=== PATIENT | male | born 1970 | race Caucasian/White ===

== ENCOUNTER 2022-09-13 00:44 | Inpatient (IN) | payer BC, OTHER ==
[2022-09-13] VITALS (7 sets, daily range): BP systolic 94–156; BP diastolic 55–91
[~2022-09-13] VITALS: Ht 172.7 cm; Wt 109.8 kg
[~2022-09-13 00:44] MED LIST: ACET500C; GABA300T; IBUP800T; LYRI150C; NABU750T; NEXI1CAP3; PROT1TAB2; TRAM50TA2; ULTRTA; hyzaar
[2022-09-13] MEDS ORDERED: NS 1,000 ML IV ONE (01:05)
[2022-09-13] MEDS ORDERED: NS 2,200 ML in IV 1 EA IV ONE (01:20)
[2022-09-13] MEDS ORDERED: TIZA10TA PO (01:38)
[2022-09-13] MEDS ORDERED: ATOR1TAB21 PO (01:38)
[2022-09-13] MEDS ORDERED: METF-838 PO (01:38)
[2022-09-13] MEDS ORDERED: GABA600T4 PO (01:38)
[2022-09-13] MEDS ORDERED: METO1TAB7 PO (01:38)
[2022-09-13] MEDS ORDERED: DICY20TA20 PO (01:38)
[2022-09-13] MEDS ORDERED: LISI20TA33 PO (01:38)
[2022-09-13] MEDS ORDERED: MELO15TA28 PO (01:38)
[2022-09-13] MEDS ORDERED: ALLO100T PO (01:38)
[2022-09-13] MEDS ORDERED: PANT20TA6 PO (01:38)
[2022-09-13 01:46] LABS: ALBUMIN 3.6 G/DL (3.2-5.2); POTASSIUM SERUM 4.6 MMOL/L (3.5-5.1)
[2022-09-13 01:52] LABS: CALCIUM LEVEL 8.1 MG/DL (8.5-10.1)
[2022-09-13 01:54] LABS: BILIRUBIN,DIRECT 0.3 MG/DL (<0.4); BILIRUBIN,TOTAL 0.6 MG/DL (0.3-1.2); TOTAL PROTEIN 6.9 G/DL (5.7-8.2)
[2022-09-13 02:03] LABS: BASO % 0.5 % (0.0-1.0); HEMOGLOBIN 13.8 g/dl (13.5-17.5); LYMPH # 1.8 10^3/uL (1.5-5.0); LYMPH % 41.3 % (24.0-44.0); MEAN CORPUSCULAR HEMOGLOBIN 30.3 pg (27.0-33.0); MEAN CORPUSCULAR HGB CONC 33.7 g/dl (32.0-36.5); MEAN CORPUSCULAR VOLUME 89.9 fl (80.0-96.0); MONO # 0.4 10^3/uL (0.0-0.8); MONO % 9.7 % (2.0-8.0); NEUTROPHILS # 2.1 10^3/uL (1.5-8.5); NEUTROPHILS % 47.3 % (36.0-66.0); PLATELET COUNT, AUTOMATED 101 10^3/uL (150-450); RED BLOOD COUNT 4.56 10^6/uL (4.30-6.10); WHITE BLOOD COUNT 4.3 10^3/uL (4.0-10.0)
[2022-09-13 02:33] LABS: CREATININE FOR GFR 10.7 MG/DL (0.70-1.30); GLOMERULAR FILTRATION RATE 5.4 (>56)
[2022-09-13] MEDS ORDERED: NS 1,000 ML IV SCH (03:55)
[2022-09-13] MEDS ORDERED: GLUCOSE 4GM CHEW TABLET PO PRN (04:20)
[2022-09-13] MEDS ORDERED: GLUCAGON INJ 1MG VIAL SC PRN (04:20)
[2022-09-13] MEDS ORDERED: DEXTROSE 50% 50 ML SYRINGE IV PRN (04:20)
[2022-09-13] MEDS ORDERED: HOME MED LIST COMPLETE! XX SCH (05:05)
[2022-09-13] MEDS: HEPARIN SOD (PORCINE) 5000UNITS/ML 1ML VIAL/SYRINGE SC SCH ×2 (06:40→14:05)
[2022-09-13] MEDS: LR 1,000 ML IV SCH ×4 (06:40→18:05)
[2022-09-13] MEDS: INSULIN LISPRO (NovoLOG) PER UNIT SC SCH ×4 (07:30→21:00)
[2022-09-13] MEDS: FOLIC ACID 1MG TAB PO SCH (09:00)
[2022-09-13] MEDS: THIAMINE 100 MG TAB PO SCH (09:00)
[2022-09-13] MEDS: MULTIVITAMINS/MINERALS THERAP 1 TAB PO SCH (09:00)
[2022-09-13 09:11] LABS: CALCIUM LEVEL 6.8 MG/DL (8.5-10.1)
[2022-09-13 09:36] LABS: CREATININE FOR GFR 10.07 MG/DL (0.70-1.30); GLOMERULAR FILTRATION RATE 5.8 (>56); POTASSIUM SERUM 4.3 MMOL/L (3.5-5.1)
[2022-09-13] MEDS ORDERED: LORazepam 2 MG TAB PO PRN (10:35)
[2022-09-13] MEDS ORDERED: ACETAMINOPHEN 325 MG TAB PO PRN (10:50)
[2022-09-13] MEDS ORDERED: cefTRIAXone SOD 1 GM in D5W MINI-BAG PLUS 50 ML IV SCH (11:00)
[2022-09-13] MEDS: SODIUM BICARBONATE 75 MEQ in NS 0.45% 1,000 ML IV SCH ×2 (11:10→15:34)
[2022-09-13 13:47] LABS: HEPATITIS B SURFACE ANTIGEN NEGATIVE (NEGATIVE)
[2022-09-13] MEDS ORDERED: ACETAMINOPHEN 325 MG SUPP PR ONE (14:00)
[2022-09-13 14:08] LABS: HEPATITIS B CORE ANTIBODY IGM NEGATIVE (NEGATIVE)
[2022-09-13] MEDS: ACETAMINOPHEN TAB 650MG DOSE (2X325MG) PO PRN (18:06)
[2022-09-13 20:48] LABS: VENOUS BASE EXCESS -10.8 (-2.0-2.0); VENOUS HCO3 14.5 MEQ/L (23.0-27.0); VENOUS O2 SATURATION 76.2 % (60.0-80.0); VENOUS PARTIAL PRESSURE CO2 31.1 mmHg (38.0-50.0); VENOUS PARTIAL PRESSURE O2 44.3 mmHg (30.0-50.0); VENOUS PH 7.287 UNITS (7.330-7.430); VENOUS STANDARD HCO3 15.6 MEQ/L; VENOUS TOTAL CO2 15.5 MEQ/L (24.0-28.0)
[2022-09-13 21:13] LABS: CALCIUM LEVEL 6.6 MG/DL (8.5-10.1)
[2022-09-13 21:15] LABS: INR 1.13; PROTHROMBIN TIME 14.7 SECONDS (12.5-14.5)
[2022-09-13 21:16] LABS: PARTIAL THROMBOPLASTIN TIME 33.9 SECONDS (24.8-34.2)
[2022-09-13 21:16] LABS: BILIRUBIN,TOTAL 0.4 MG/DL (0.3-1.2)
[2022-09-13 21:21] LABS: ALBUMIN 2.8 G/DL (3.2-5.2); CREATININE FOR GFR 9.12 MG/DL (0.70-1.30); GLOMERULAR FILTRATION RATE 6.5 (>56); POTASSIUM SERUM 4.1 MMOL/L (3.5-5.1); TOTAL PROTEIN 5.6 G/DL (5.7-8.2)
[2022-09-14] VITALS (9 sets, daily range): BP systolic 124–202; BP diastolic 62–104
[2022-09-14] MEDS: ACETAMINOPHEN TAB 650MG DOSE (2X325MG) PO PRN ×4 (00:29→20:46)
[2022-09-14] MEDS: SODIUM BICARBONATE 75 MEQ in NS 0.45% 1,000 ML IV SCH ×2 (01:29→07:42)
[2022-09-14] MEDS ORDERED: PIPERACILLIN/TAZOBACTAM SOD 3.375 GM in D5W MINI-BAG PLUS 50 ML IV SCH (03:00)
[2022-09-14] MEDS ORDERED: ACETAMINOPHEN 325 MG TAB PO ONE (04:00)
[2022-09-14] MEDS: PIPERACILLIN/TAZOBACTAM SOD 2.25 GM in D5W MINI-BAG PLUS 50 ML IV SCH ×4 (04:18→22:15)
[2022-09-14] MEDS: INSULIN LISPRO (NovoLOG) PER UNIT SC SCH ×4 (07:30→21:00)
[2022-09-14 07:32] LABS: HEMATOCRIT 37.2 % (42.0-52.0); HEMOGLOBIN 13.1 g/dl (13.5-17.5); MEAN CORPUSCULAR HGB CONC 35.2 g/dl (32.0-36.5); MEAN CORPUSCULAR VOLUME 87.9 fl (80.0-96.0); RED BLOOD COUNT 4.23 10^6/uL (4.30-6.10); VENOUS BASE EXCESS -10.4 (-2.0-2.0); VENOUS HCO3 14.8 MEQ/L (23.0-27.0); VENOUS O2 SATURATION 88.2 % (60.0-80.0); VENOUS PARTIAL PRESSURE CO2 31.2 mmHg (38.0-50.0); VENOUS PH 7.293 UNITS (7.330-7.430); VENOUS STANDARD HCO3 16.1 MEQ/L; VENOUS TOTAL CO2 15.7 MEQ/L (24.0-28.0); WHITE BLOOD COUNT 4.3 10^3/uL (4.0-10.0)
[2022-09-14 08:08] LABS: CHLORIDE LEVEL 101 MMOL/L (98-107); POTASSIUM SERUM 3.5 MMOL/L (3.5-5.1); SODIUM LEVEL 134 MMOL/L (136-145)
[2022-09-14 08:09] LABS: CARBON DIOXIDE LEVEL 16 MMOL/L (20-31)
[2022-09-14 08:14] LABS: BLOOD UREA NITROGEN 100 MG/DL (9-23); GLUCOSE, FASTING 111 MG/DL (60-100); LIPASE 101 U/L (12-53); MAGNESIUM LEVEL 1.9 MG/DL (1.8-2.4)
[2022-09-14 08:15] LABS: ALKALINE PHOSPHATASE 56 U/L (46-116)
[2022-09-14] MEDS: THIAMINE 100 MG TAB PO SCH (08:15)
[2022-09-14] MEDS: FOLIC ACID 1MG TAB PO SCH (08:15)
[2022-09-14] MEDS: MULTIVITAMINS/MINERALS THERAP 1 TAB PO SCH (08:15)
[2022-09-14 08:16] LABS: BILIRUBIN,TOTAL 0.6 MG/DL (0.3-1.2); IRON (FE) 45 UG/DL (65-175); PERCENT SATURATION 20.2 % (19.7-50.0); PHOSPHORUS LEVEL 6.9 MG/DL (2.5-4.9); TOTAL IRON BINDING CAPACITY 223 UG/DL (250-425)
[2022-09-14 08:17] LABS: ALT/SGPT 407 U/L (7.0-40); AST/SGOT 456 U/L (<34)
[2022-09-14 08:18] LABS: TOTAL 25(OH) VITAMIN D 20.8 NG/ML (20.0-100.0)
[2022-09-14 08:39] LABS: PLATELET COUNT, AUTOMATED 83 10^3/uL (150-450)
[2022-09-14 08:48] LABS: ATYPICAL LYMPH 2 % (0-5); LYMPHOCYTES 27 % (16-44); MONOCYTES 1 % (0-5); MYELOCYTES 1 % (0-0); NEUTROPHILS 57 % (28-66); PLATELET ESTIMATE DECREASED (NORMAL)
[2022-09-14 08:49] LABS: ANISOCYTOSIS 1+; MICROCYTOSIS 1+
[2022-09-14] MEDS ORDERED: FLUBLOK(EGG FREE)(QUAD)INFLUENZA VACC 0.5ML SYRINGE 18YRS & OLDER IM.IMMUN ONE (09:00)
[2022-09-14 09:39] LABS: CREATININE FOR GFR 8.64 MG/DL (0.70-1.30); GLOMERULAR FILTRATION RATE 6.9 (>56); TOTAL PROTEIN 6.2 G/DL (5.7-8.2)
[2022-09-14] MEDS: SODIUM BICARBONATE 75 MEQ, POTASSIUM CHLORIDE INJ 10 MEQ in NS 0.45% 1,000 ML IV SCH ×2 (13:54→20:47)
[2022-09-14 15:19] LABS: FOLATE > 24.00 NG/ML (>5.4)
[2022-09-14 15:23] LABS: FERRITIN > 16500.0 NG/ML (10.5-307.3)
[2022-09-14 15:26] LABS: BILIRUBIN,DIRECT 0.3 MG/DL (<0.4); VITAMIN B12 LEVEL > 2000 PG/ML (211-911)
[2022-09-14 16:16] LABS: OSMOLALITY SERUM 302 MOSM/KG (275-295)
[2022-09-14 16:18] LABS: HEMATOCRIT 33.1 % (42.0-52.0); HEMOGLOBIN 11.5 g/dl (13.5-17.5); MEAN CORPUSCULAR HEMOGLOBIN 30.4 pg (27.0-33.0); MEAN CORPUSCULAR HGB CONC 34.7 g/dl (32.0-36.5); MEAN CORPUSCULAR VOLUME 87.6 fl (80.0-96.0); RED BLOOD COUNT 3.78 10^6/uL (4.30-6.10); WHITE BLOOD COUNT 4.2 10^3/uL (4.0-10.0)
[2022-09-14 16:20] LABS: PLATELET COUNT, AUTOMATED 91 10^3/uL (150-450)
[2022-09-14 16:40] LABS: ACETONE/KETONE 1.49 MMOL/L (0.02-0.27)
[2022-09-14 17:08] LABS: ATYPICAL LYMPH 2 % (0-5); LYMPHOCYTES 18 % (16-44); METAMYELOCYTES 1 % (0-0); MONOCYTES 6 % (0-5); NEUTROPHILS 42 % (28-66)
[2022-09-14 17:09] LABS: PLATELET ESTIMATE DECREASED (NORMAL)
[2022-09-14 18:59] LABS: CHOLESTEROL LEVEL 113 MG/DL (<200); CHOLESTEROL RISK RATIO 21.73 (<5); HDL CHOLESTEROL 5.2 MG/DL (>40); NON-HDL-C 108 MG/DL; TRIGLYCERIDES LEVEL 597 MG/DL (<150)
[2022-09-14 19:59] LABS: HIV 1&2 SCREEN CENTAUR NEGATIVE (NEGATIVE)
[2022-09-14 20:06] LABS: ALBUMIN 2.7 G/DL (3.2-5.2); ALKALINE PHOSPHATASE 52 U/L (46-116); ALT/SGPT 329 U/L (7.0-40); AST/SGOT 272 U/L (<34); BILIRUBIN,TOTAL 0.6 MG/DL (0.3-1.2); BLOOD UREA NITROGEN 99 MG/DL (9-23); CALCIUM LEVEL 7.1 MG/DL (8.5-10.1); CARBON DIOXIDE LEVEL 17 MMOL/L (20-31); CHLORIDE LEVEL 101 MMOL/L (98-107); CREATININE FOR GFR 8.18 MG/DL (0.70-1.30); GLOMERULAR FILTRATION RATE 7.3 (>56); GLUCOSE, FASTING 109 MG/DL (60-100); POTASSIUM SERUM 3.3 MMOL/L (3.5-5.1); SODIUM LEVEL 135 MMOL/L (136-145); TOTAL PROTEIN 5.6 G/DL (5.7-8.2)
[2022-09-14] MEDS: HEPARIN SOD (PORCINE) 5000UNITS/ML 1ML VIAL/SYRINGE SC SCH (21:28)
[2022-09-15] VITALS (7 sets, daily range): BP systolic 131–187; BP diastolic 68–96
[2022-09-15] MEDS: ACETAMINOPHEN TAB 650MG DOSE (2X325MG) PO PRN ×2 (03:38→10:28)
[2022-09-15] MEDS: SODIUM BICARBONATE 75 MEQ, POTASSIUM CHLORIDE INJ 10 MEQ in NS 0.45% 1,000 ML IV SCH (05:29)
[2022-09-15] MEDS: PIPERACILLIN/TAZOBACTAM SOD 2.25 GM in D5W MINI-BAG PLUS 50 ML IV SCH ×4 (05:29→23:33)
[2022-09-15] MEDS: HEPARIN SOD (PORCINE) 5000UNITS/ML 1ML VIAL/SYRINGE SC SCH (05:29)
[2022-09-15 05:36] LABS: BASO % 0.2 % (0.0-1.0); HEMATOCRIT 31.4 % (42.0-52.0); HEMOGLOBIN 10.9 g/dl (13.5-17.5); LYMPH # 0.8 10^3/uL (1.5-5.0); LYMPH % 16.9 % (24.0-44.0); MEAN CORPUSCULAR HEMOGLOBIN 30.2 pg (27.0-33.0); MEAN CORPUSCULAR HGB CONC 34.7 g/dl (32.0-36.5); MONO # 0.4 10^3/uL (0.0-0.8); MONO % 9.3 % (2.0-8.0); NEUTROPHILS # 3.2 10^3/uL (1.5-8.5); NEUTROPHILS % 71.6 % (36.0-66.0); RED BLOOD COUNT 3.61 10^6/uL (4.30-6.10); WHITE BLOOD COUNT 4.4 10^3/uL (4.0-10.0)
[2022-09-15 05:38] LABS: PLATELET COUNT, AUTOMATED 99 10^3/uL (150-450)
[2022-09-15 06:03] LABS: ALBUMIN 2.5 G/DL (3.2-5.2); BILIRUBIN,TOTAL 0.6 MG/DL (0.3-1.2); CALCIUM LEVEL 7.3 MG/DL (8.5-10.1); CREATININE FOR GFR 7.51 MG/DL (0.70-1.30); GLOMERULAR FILTRATION RATE 8.1 (>56); POTASSIUM SERUM 3.2 MMOL/L (3.5-5.1); TOTAL PROTEIN 5.5 G/DL (5.7-8.2)
[2022-09-15 07:30] LABS: TOTAL PROTEIN 5.8 GM/DL (6.4-8.2)
[2022-09-15] MEDS: MULTIVITAMINS/MINERALS THERAP 1 TAB PO SCH (08:35)
[2022-09-15] MEDS: INSULIN LISPRO (NovoLOG) PER UNIT SC SCH ×4 (08:35→20:23)
[2022-09-15] MEDS: THIAMINE 100 MG TAB PO SCH (08:35)
[2022-09-15] MEDS: POTASSIUM CHLORIDE 10MEQ SR TABLET PO SCH ×2 (08:35→20:22)
[2022-09-15] MEDS: FOLIC ACID 1MG TAB PO SCH (08:35)
[2022-09-15 10:18] LABS: FERRITIN 13852.2 NG/ML (10.5-307.3)
[2022-09-15] MEDS: methylPREDNISolone 1,000 MG, VIAL MATE ADAPTER 1 EACH in NS 250 ML IV SCH (10:20)
[2022-09-15] MEDS: SODIUM BICARBONATE 75 MEQ, POTASSIUM CHLORIDE INJ 20 MEQ in NS 0.45% 1,000 ML IV SCH ×2 (11:42→20:24)
[2022-09-15] MEDS ORDERED: LIDOCAINE 1% MDV 20ML VIAL As Ordered ONE ×2 (11:56→13:51)
[2022-09-15 16:08] LABS: FREE KAPPA LIGHT CHAINS SERUM 66.8 mg/L (3.3-19.4); FREE LAMBDA LIGHT CHAINS SERUM 51.1 mg/L (5.7-26.3); KAPPA/LAMBDA RATIO SERUM 1.31 (0.26-1.65)
[2022-09-15] MEDS ORDERED: SODIUM CHLORIDE 0.9% INJ 10 ML SYR IV PRN (18:00)
[2022-09-15] MEDS: SODIUM CHLORIDE 0.9% INJ 10 ML SYR IV SCH (18:29)
[2022-09-15 20:31] LABS: MONO REFLEX EBV COMP NEGATIVE (NEGATIVE)
[2022-09-16 00:20] VITALS: BP 130/69
[2022-09-16] MEDS: SODIUM BICARBONATE 75 MEQ, POTASSIUM CHLORIDE INJ 20 MEQ in NS 0.45% 1,000 ML IV SCH ×5 (01:28→22:28)
[2022-09-16 04:06] VITALS: BP 154/92
[2022-09-16] MEDS: SODIUM CHLORIDE 0.9% INJ 10 ML SYR IV SCH ×2 (05:15→17:01)
[2022-09-16] MEDS: PIPERACILLIN/TAZOBACTAM SOD 2.25 GM in D5W MINI-BAG PLUS 50 ML IV SCH ×4 (05:15→22:26)
[2022-09-16 06:44] LABS: HEMATOCRIT 32.7 % (42.0-52.0); HEMOGLOBIN 11.2 g/dl (13.5-17.5); LYMPH # 0.6 10^3/uL (1.5-5.0); LYMPH % 12.9 % (24.0-44.0); MEAN CORPUSCULAR HEMOGLOBIN 30.4 pg (27.0-33.0); MEAN CORPUSCULAR HGB CONC 34.3 g/dl (32.0-36.5); MEAN CORPUSCULAR VOLUME 88.6 fl (80.0-96.0); MONO # 0.2 10^3/uL (0.0-0.8); MONO % 4.9 % (2.0-8.0); NEUTROPHILS # 3.4 10^3/uL (1.5-8.5); PLATELET COUNT, AUTOMATED 116 10^3/uL (150-450); RED BLOOD COUNT 3.69 10^6/uL (4.30-6.10); WHITE BLOOD COUNT 4.3 10^3/uL (4.0-10.0)
[2022-09-16 07:28] LABS: ALBUMIN 2.3 G/DL (3.2-5.2); BILIRUBIN,DIRECT 0.3 MG/DL (<0.4); BILIRUBIN,TOTAL 0.5 MG/DL (0.3-1.2); CALCIUM LEVEL 7.2 MG/DL (8.5-10.1); CREATININE FOR GFR 6.48 MG/DL (0.70-1.30); GLOMERULAR FILTRATION RATE 9.6 (>56); PERCENT SATURATION 32.6 % (19.7-50.0); POTASSIUM SERUM 3.6 MMOL/L (3.5-5.1); TOTAL PROTEIN 5.4 G/DL (5.7-8.2)
[2022-09-16 08:00] VITALS: BP 140/90
[2022-09-16] MEDS ORDERED: FLUBLOK(EGG FREE)(QUAD)INFLUENZA VACC 0.5ML SYRINGE 18YRS & OLDER IM.IMMUN ONE (08:00)
[2022-09-16] MEDS: INSULIN LISPRO (NovoLOG) PER UNIT SC SCH ×4 (08:12→21:20)
[2022-09-16] MEDS: MULTIVITAMINS/MINERALS THERAP 1 TAB PO SCH (08:14)
[2022-09-16] MEDS: ACETAMINOPHEN TAB 650MG DOSE (2X325MG) PO PRN (08:14)
[2022-09-16] MEDS: FOLIC ACID 1MG TAB PO SCH (08:14)
[2022-09-16] MEDS: THIAMINE 100 MG TAB PO SCH (08:14)
[2022-09-16 09:11] LABS: FERRITIN 12155.8 NG/ML (10.5-307.3)
[2022-09-16] MEDS: methylPREDNISolone 1,000 MG, VIAL MATE ADAPTER 1 EACH in NS 250 ML IV SCH (11:19)
[2022-09-16 12:00] VITALS: BP 144/90
[2022-09-16 12:08] LABS: ANTINUCLEAR ANTIBODIES DIRECT Negative (Negative)
[2022-09-16 16:00] VITALS: BP 138/87
[2022-09-16 20:00] VITALS: BP 143/82
[2022-09-17] VITALS: BP 133/80
[2022-09-17 02:42] VITALS: BP 119/71
[2022-09-20 11:27] LABS: ALBUMIN % 51.7 % (55.8-66.1); ALPHA-1-GLOBULIN % 8.5 % (2.9-4.9); ALPHA-1-GLOBULINS 0.49 GM/DL (0.17-0.41); ALPHA-2-GLOBULINS 0.78 GM/DL (0.42-0.99); ALPHA-2-GLOBULINS % 13.4 % (7.1-11.8); BETA-1-GLOBULINS 0.33 GM/DL (0.28-0.60); BETA-1-GLOBULINS % 5.7 % (4.7-7.2); BETA-2-GLOBULINS 0.48 GM/DL (0.19-0.55); BETA-2-GLOBULINS % 8.3 % (3.2-6.5); GAMMA GLOBULIN % 12.4 % (11.1-18.8); GAMMA GLOBULINS 0.72 GM/DL (0.65-1.58)
[2022-09-20 16:08] LABS: BETA 2 MICROGLOBULIN 8.7 mg/L (0.6-2.4); ERYTHROPOIETIN 1.4 mIU/mL (2.6-18.5); SOLUBLE TRANSFERRIN RECEPTOR 9.8 nmol/L (12.2-27.3)
== END 2022-09-17 03:04 | disposition short-term general hospital (02) | DRG 661 ==
LOC: EDBD 00:44 → M ED 00:44 → M ED INP 04:20 → ENRESERV 04:51 → M MSPAV 05:40 → M PCU 09-14 20:59
PROVIDERS: ADMIT Family Medicine; ATTEND Student in an Organized Health Care Education/Training Program
PROC: 07DR3ZX Extraction of Iliac Bone Marrow, Percutaneous Approach, Diagnostic (ICD-10-PCS; 2022-09-15)
PROC: 02HV33Z Insertion of Infusion Device into Superior Vena Cava, Percutaneous Approach (ICD-10-PCS; principal; 2022-09-15 13:00)
DX: D76.1 Hemophagocytic lymphohistiocytosis (principal); N17.9 Acute kidney failure, unspecified; E87.21 Acute metabolic acidosis; E87.1 Hypo-osmolality and hyponatremia; K76.0 Fatty (change of) liver, not elsewhere classified; E11.9 Type 2 diabetes mellitus without complications; I10 Essential (primary) hypertension; D64.9 Anemia, unspecified; K52.9 Noninfective gastroenteritis and colitis, unspecified; I48.91 Unspecified atrial fibrillation; E78.5 Hyperlipidemia, unspecified; M10.9 Gout, unspecified; F10.10 Alcohol abuse, uncomplicated; Z79.899 Other long term (current) drug therapy; Z88.8 Allergy status to other drugs, medicaments and biological substances; R16.1 Splenomegaly, not elsewhere classified; K21.9 Gastro-esophageal reflux disease without esophagitis; D69.6 Thrombocytopenia, unspecified